=== PATIENT | male | born 2000 | race African-American/Black ===

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

== ENCOUNTER 2020-01-17 13:18 | Emergency (ER) | payer OTHER ==
[~2020-01-17] VITALS: Ht 172.7 cm; Wt 60.8 kg
[~2020-01-17 13:18] MED LIST changes: +DICYCLOMINE HCL10 MG PO; +ONDANSETRON ODT4 MG BC; +RANITIDINE HCL150 MG ORAL
[2020-01-17 14:00] VITALS: BP 104/54
[2020-01-17] MEDS ORDERED: CIPROFLOXACIN500 M2 ORAL (14:08)
[2020-01-17] MEDS ORDERED: METRONIDAZOLE500 MG ORAL (14:08)
[2020-01-17] MEDS ORDERED: FAMOTIDINE20 MG ORAL (14:08)
[2020-01-17] MEDS ORDERED: DICYCLOMINE HCL10 MG ORAL (14:08)
[2020-01-17 14:15] VITALS: BP 114/61
--- NOTE | 2020-01-17 17:51 | Emergency Room Report ---
History of Present Illness General Chief Complaint: Abdominal Pain Source: Patient Present Illness HPI 19-year-old male presents ED for evaluation. Complaining of abdominal pain and diarrhea. Pain is cramping, 5 out of 10, nonradiating. Notes watery loose stools. Multiple times a day. Denies fevers or chills. Denies recent travel. Denies recent antibiotic use. States that symptoms have persisted for nearly 2 weeks. No other aggravating relieving factors. Denies any other associated symptoms Allergies: Coded Allergies: SULFA (SULFONAMIDE ANTIBIOTICS) (Verified Allergy, Unknown, 02/07/19) Patient History Past Medical History: asthma Past Surgical History: none Pertinent Family History: none Social History: Denies: smoking, alcohol use, drug use Immunizations: UTD Reviewed Nursing Documentation: PMH: Agreed; PSxH: Agreed Nursing Documentation-PMH Hx Asthma: Yes Review of Systems All Other Systems: negative except mentioned in HPI Physical Exam Vital Signs Date Time Temp Pulse Resp B/P (MAP) Pulse Ox O2 Delivery O2 Flow Rate FiO2 01/17/20 13:30 98.2 71 18 104/54 (71) 96 Room Air Sp02 EP Interpretation: reviewed, normal General Appearance: no apparent distress, alert, GCS 15, non-toxic Head: normocephalic, atraumatic Eyes: bilateral eye normal inspection, bilateral eye PERRL ENT: hearing grossly normal, normal pharynx, no angioedema, normal voice Neck: full range of motion, supple/symm/no masses Respiratory: chest non-tender, lungs clear, normal breath sounds, speaking full sentences Cardiovascular #1: regular rate, rhythm, no edema Cardiovascular #2: 2+ carotid (R), 2+ carotid (L), 2+ radial (R), 2+ radial (L) , 2+ dorsalis pedis (R), 2+ dorsalis pedis (L) Gastrointestinal: normal bowel sounds, non tender, soft, non-distended, no guarding, no rebound Rectal: deferred Genitourinary: normal inspection, no CVA tenderness Musculoskeletal: back normal, normal range of motion, gait/station normal, non- tender Neurologic: alert, motor strength/tone normal, oriented x3, sensory intact, responsive, speech normal Psychiatric: judgement/insight normal, memory normal, mood/affect normal, no suicidal/homicidal ideation Reflexes: 3+ bicep (R), 3+ bicep (L), 3+ tricep (R), 3+ tricep (L), 3+ knee (R) , 3+ knee (L) Skin: no rash Lymphatic: no adenopathy Medical Decision Making Diagnostic Impression: Primary Impression: Colitis ER Course Hospital Course 19-year-old M presents to ED with cramping abdominal pain with diarrhea differential diagnosis: gastritis, SBO, cholecystits, gastroenteritis Clinical course Patient placed on stretcher. After initial history physical exam reveals male in no acute distress. Abdomen soft. No guarding or rebound. Good capillary refill. Vitals stable. I discussed findings with patient. Concerning for colitis given symptoms persisting for 2 weeks. Will discharge with antibiotics. Patient agrees with plan. Patient declines IV access. Safe for discharge for close outpatient follow-up. Does not have a PMD. I will provide referrals I feel this is a highly complex case requiring extensive working including EKG/ Rhythm strip, Xray/CT/US, Blood/urine lab work, repeat exams while in ED, and administration of strong opiates/narcotics for pain control, admission to hospital or close patient follow up. Diagnosis - colitis Stable and discharged to home with prescriptions for pepcid, bentyl, cipro, flagyl. Followup with PMD. Return to ED if symptoms recur or worsen Last Vital Signs Date Time Temp Pulse Resp B/P (MAP) Pulse Ox O2 Delivery O2 Flow Rate FiO2 01/17/20 14:15 98.3 77 19 114/61 100 Room Air Status: improved Disposition: HOME, SELF-CARE Condition: Stable Scripts Metronidazole* (FLAGYL*) 500 Mg Tablet 500 MG ORAL THREE TIMES A DAY, #21 TAB Prov: Vinny Bliss MD 01/17/20 Ciprofloxacin Hcl* (CIPROFLOXACIN HCL*) 500 Mg Tablet 500 MG ORAL Q12H, #14 TAB 0 Refills Prov: Vinny Bliss MD 01/17/20 Dicyclomine Hcl* (DICYCLOMINE HCL*) 10 Mg Capsule 10 MG ORAL QID, #20 CAP Prov: Vinny Bliss MD 01/17/20 Famotidine* (Pepcid 20mg tablet*) 20 Mg Tablet 20 MG ORAL DAILY, #30 TAB 0 Refills Prov: Vinny Bliss MD 01/17/20 Referrals: [facility]ERR[facility] (PCP) Henny Rodriguez [facility] Patient Instructions: Colitis Vinny Bliss MD Jan 17, 2020 17:51
== END 2020-01-17 14:15 | disposition home or self-care (01) ==
LOC: EMR 14:03
DX: K52.9 Noninfective gastroenteritis and colitis, unspecified (principal); R19.7 Diarrhea, unspecified; Z88.2 Allergy status to sulfonamides
CPT/HCPCS: 99282